=== PATIENT | female | born 1950 | race Caucasian/White ===

== ENCOUNTER 2018-05-01 11:56 | Inpatient (IN) | payer MEDICARE, OTHER, MEDICAID ==
[2018-05-01] MEDS: morphine 10 MG INJ IV (12:15)
[2018-05-01] MEDS: PROPOFOL 200 MG INJ IV (12:56)
[2018-05-01] MEDS: ONDANSETRON 4 MG INJ IV (13:25)
[2018-05-01 13:26] LABS: ADD MAN DIFF? NO
[2018-05-01] MEDS ORDERED: ONDANSETRON 4 MG INJ IV (13:30)
[2018-05-01] MEDS ORDERED: ACETAMINOPHEN 325 MG TAB PO ×2 (13:30→14:00)
[2018-05-01 13:31] LABS: BASOPHILS % 0.5 % (0.0-2.0); EOSINOPHILS % 0.3 % (0.0-7.0); HEMATOCRIT 39.4 % (37.0-47.0); HEMOGLOBIN 13.9 g/dl (12.0-16.0); LYMPHOCYTES # 1.3 10^3/ul (0.8-2.9); LYMPHOCYTES % 21.8 % (15.0-51.0); MEAN CORPUSCULAR HEMOGLOBIN 31.4 pg (29.0-33.0); MEAN CORPUSCULAR HGB CONC 35.3 g/dl (32.0-37.0); MEAN CORPUSCULAR VOLUME 88.9 fl (82.0-101.0); MEAN PLATELET VOLUME 9.4 fl (7.4-10.4); MONOCYTE # 0.6 10^3/ul (0.3-0.9); MONOCYTES % 9.1 % (0.0-11.0); NEUTROPHIL # 4.1 10^3/ul (1.6-7.5); PLATELET COUNT 241 10^3/UL (140-415); RED BLOOD COUNT 4.43 10^6/ul (4.20-5.40); RED CELL DISTRIBUTION WIDTH 12.2 % (11.5-14.5)
[2018-05-01 13:31] LABS: WHITE BLOOD COUNT 6.1 10^3/ul (4.8-10.8)
[2018-05-01 13:50] LABS: ALANINE AMINOTRANSFERASE 62 IU/L (13-69); ALBUMIN 4.3 g/dl (3.3-4.9); ALKALINE PHOSPHATASE 56 IU/L (42-121); ANION GAP 13 (8-16); ASPARTATE AMINO TRANSFERASE 43 IU/L (15-46); BILIRUBIN,INDIRECT 0.2 mg/dl (0-1.1); BILIRUBIN,TOTAL 0.2 mg/dl (0.2-1.3); BLOOD UREA NITROGEN 12 mg/dl (7-20); CALCIUM 8.8 mg/dl (8.4-10.2); CARBON DIOXIDE 25 mmol/L (21-31); CHLORIDE 105 mmol/L (97-110); CREATININE 0.58 mg/dl (0.44-1.00); GLUCOSE 138 mg/dl (70-220); POTASSIUM 3.5 mmol/L (3.5-5.1); SODIUM 139 mmol/L (135-144); TOTAL PROTEIN 7.4 g/dl (6.1-8.1)
[2018-05-01 13:51] LABS: INR 0.92; PARTIAL THROMBOPLASTIN TIME 30.9 Sec (25.0-35.0); PROTIME 12.4 Sec (11.9-14.9)
[2018-05-01] MEDS ORDERED: NACL 0.9% 3 ML SYG IV (14:00)
[2018-05-01] MEDS ORDERED: HYDROCODONE/APAP (5/325) TAB PO ×2 (14:00)
[2018-05-01] MEDS ORDERED: DOCUSATE SODIUM 100 MG CAP PO (14:00)
[2018-05-01] MEDS: KETOROLAC 30 MG INJ IV (14:21)
[2018-05-01 14:27] LABS: HEMOGLOBIN A1C 5.3 % (0-5.9)
[2018-05-01] MEDS: CLINDAMYCIN 900 MG/D5W (PMX) 50 ML IVPB ×3 (14:30→22:22)
[2018-05-01] MEDS: SOD CHLORIDE 0.9% 1,000 ML IV (14:53)
[2018-05-01] MEDS: METOCLOPRAMIDE 10 MG INJ IV ×2 (14:53→20:09)
[2018-05-01] MEDS ORDERED: GLUCAGON 1 MG INJ IM (15:00)
[2018-05-01] MEDS ORDERED: GLUCOSE GEL 15 GRAM TUBE BUCCAL (15:00)
[2018-05-01] MEDS ORDERED: GLUCOSE GEL 15 GRAM TUBE PO ×2 (15:00)
[2018-05-01] MEDS ORDERED: DEXTROSE 50% 50 ML SYRINGE IV ×2 (15:00)
[2018-05-01] MEDS: HYDROmorphONE 0.5 MG/0.5 ML SYG IV (15:20)
[2018-05-01] MEDS: HYDROmorphONE 1 MG/ML SYG IV (16:26)
[2018-05-01] MEDS ORDERED: OXYCODONE/ACETAMINOPHEN (5/325) TAB PO (16:30)
[2018-05-01] MEDS: INSULIN ASPART [NOVOLOG] 3 ML PEN SC ×2 (17:39→21:00)
[2018-05-01] MEDS ORDERED: HYDROmorphONE 0.5 MG/0.5 ML SYG IV (19:00)
[2018-05-01] MEDS: ATORVASTATIN 20 MG TAB PO (20:09)
[2018-05-01] MEDS: OXYCODONE/ACETAMINOPHEN (10/325) TAB PO (20:58)
[2018-05-02] MEDS: KETOROLAC 30 MG INJ IV ×3 (01:00→13:48)
[2018-05-02] MEDS: CLINDAMYCIN 900 MG/D5W (PMX) 50 ML IVPB (05:39)
[2018-05-02 05:59] LABS: ADD MAN DIFF? NO
[2018-05-02] MEDS: PANTOPRAZOLE (EC) 40 MG TAB PO (06:00)
[2018-05-02] MEDS: LEVOTHYROXINE 88 MCG TAB PO ×2 (06:02→10:56)
[2018-05-02 06:03] LABS: WHITE BLOOD COUNT 8.7 10^3/ul (4.8-10.8)
[2018-05-02 06:03] LABS: BASOPHILS % 0.2 % (0.0-2.0); EOSINOPHILS % 0.1 % (0.0-7.0); HEMATOCRIT 35.3 % (37.0-47.0); LYMPHOCYTES # 1.8 10^3/ul (0.8-2.9); LYMPHOCYTES % 20.2 % (15.0-51.0); MEAN CORPUSCULAR HEMOGLOBIN 30.7 pg (29.0-33.0); MEAN CORPUSCULAR VOLUME 90.3 fl (82.0-101.0); MEAN PLATELET VOLUME 10.4 fl (7.4-10.4); MONOCYTE # 0.9 10^3/ul (0.3-0.9); MONOCYTES % 10.9 % (0.0-11.0); NEUTROPHIL # 5.9 10^3/ul (1.6-7.5); NEUTROPHILS % 68.4 % (39.0-77.0); PLATELET COUNT 268 10^3/UL (140-415); RED BLOOD COUNT 3.91 10^6/ul (4.20-5.40); RED CELL DISTRIBUTION WIDTH 12.8 % (11.5-14.5)
[2018-05-02 06:30] LABS: ANION GAP 12 (8-16); BLOOD UREA NITROGEN 15 mg/dl (7-20); CARBON DIOXIDE 26 mmol/L (21-31); CHLORIDE 103 mmol/L (97-110); CREATININE 0.66 mg/dl (0.44-1.00); GLUCOSE 102 mg/dl (70-220); MAGNESIUM 1.7 mg/dl (1.7-2.5); PHOSPHORUS 4.2 mg/dl (2.5-4.9); POTASSIUM 3.8 mmol/L (3.5-5.1); SODIUM 137 mmol/L (135-144)
[2018-05-02] MEDS: INSULIN ASPART [NOVOLOG] 3 ML PEN SC ×4 (07:50→21:00)
[2018-05-02] MEDS: SOD CHLORIDE 0.9% 1,000 ML IV (08:26)
[2018-05-02] MEDS: LOSARTAN 50 MG TAB PO ×2 (09:00→10:56)
[2018-05-02] MEDS: AMLODIPINE 10 MG TAB PO ×2 (09:00→10:56)
[2018-05-02] MEDS: OXYCODONE/ACETAMINOPHEN (10/325) TAB PO ×3 (10:54→22:58)
[2018-05-02] MEDS: SOD CHLORIDE 0.45% 1,000 ML IV (17:18)
[2018-05-02] MEDS: CLINDAMYCIN 300 MG/D5W (PMX) 50 ML IVPB ×2 (17:18→23:22)
[2018-05-02] MEDS: HYDROmorphONE 2 MG TAB PO (21:14)
[2018-05-02] MEDS: ATORVASTATIN 20 MG TAB PO (21:14)
[2018-05-03] MEDS: ACCU-CHEK XX (01:33)
[2018-05-03] MEDS: KETOROLAC 30 MG INJ IV (01:40)
[2018-05-03] MEDS: CLINDAMYCIN 300 MG/D5W (PMX) 50 ML IVPB ×4 (05:14→23:42)
[2018-05-03] MEDS: PANTOPRAZOLE (EC) 40 MG TAB PO (05:16)
[2018-05-03] MEDS: LEVOTHYROXINE 88 MCG TAB PO (05:16)
[2018-05-03 05:39] LABS: ADD MAN DIFF? NO
[2018-05-03 05:45] LABS: BASOPHILS % 0.5 % (0.0-2.0); EOSINOPHILS # 0.1 10^3/ul (0.0-0.5); EOSINOPHILS % 0.8 % (0.0-7.0); HEMATOCRIT 38.1 % (37.0-47.0); HEMOGLOBIN 12.9 g/dl (12.0-16.0); LYMPHOCYTES # 2.2 10^3/ul (0.8-2.9); LYMPHOCYTES % 28.9 % (15.0-51.0); MEAN CORPUSCULAR HEMOGLOBIN 30.9 pg (29.0-33.0); MEAN CORPUSCULAR HGB CONC 33.9 g/dl (32.0-37.0); MEAN CORPUSCULAR VOLUME 91.4 fl (82.0-101.0); MEAN PLATELET VOLUME 10.2 fl (7.4-10.4); MONOCYTE # 0.9 10^3/ul (0.3-0.9); MONOCYTES % 11.3 % (0.0-11.0); NEUTROPHIL # 4.5 10^3/ul (1.6-7.5); NEUTROPHILS % 58.2 % (39.0-77.0); PLATELET COUNT 256 10^3/UL (140-415); RED BLOOD COUNT 4.17 10^6/ul (4.20-5.40); RED CELL DISTRIBUTION WIDTH 12.6 % (11.5-14.5)
[2018-05-03 05:45] LABS: WHITE BLOOD COUNT 7.7 10^3/ul (4.8-10.8)
[2018-05-03 06:24] LABS: ANION GAP 12 (8-16); BLOOD UREA NITROGEN 11 mg/dl (7-20); CALCIUM 8.9 mg/dl (8.4-10.2); CARBON DIOXIDE 29 mmol/L (21-31); CHLORIDE 102 mmol/L (97-110); CREATININE 0.67 mg/dl (0.44-1.00); GLUCOSE 99 mg/dl (70-220); MAGNESIUM 1.6 mg/dl (1.7-2.5); PHOSPHORUS 3.7 mg/dl (2.5-4.9); POTASSIUM 3.8 mmol/L (3.5-5.1); SODIUM 139 mmol/L (135-144)
[2018-05-03] MEDS ORDERED: MIDAZOLAM 1 MG/ML 2 ML INJ IV (06:30)
[2018-05-03] MEDS ORDERED: FENTAnyl 50 MCG/ML VIAL IV ×2 (06:30)
[2018-05-03] MEDS ORDERED: OXYCODONE/ACETAMINOPHEN (5/325) TAB PO ×2 (06:30)
[2018-05-03] MEDS ORDERED: ONDANSETRON 4 MG INJ IV (06:30)
[2018-05-03] MEDS ORDERED: DIPHENHYDRAMINE 50 MG INJ IV (06:30)
[2018-05-03] MEDS ORDERED: ATROPINE 1 MG/10 ML SYRINGE IV (06:30)
[2018-05-03] MEDS ORDERED: morphine (1 MG/ML) 10ML SYRINGE IV ×3 (06:30)
[2018-05-03] MEDS ORDERED: LABETALOL HCL 20MG INJ IV (06:30)
[2018-05-03] MEDS ORDERED: EPHEDrine SULFATE 50 MG/5 ML SYG IV (06:30)
[2018-05-03] MEDS ORDERED: MEPERIDINE 25 MG INJ IV (06:30)
[2018-05-03] MEDS ORDERED: hydrALAzine 20 MG INJ IV (06:30)
[2018-05-03] MEDS ORDERED: HYDROmorphONE 1 MG/5 ML IV SYRINGE IV ×3 (06:30)
[2018-05-03] MEDS ORDERED: FENTAnyl 50 MCG/ML VIAL (06:38)
[2018-05-03] MEDS ORDERED: LIDOCAINE 2% (SDV) 5 ML INJ (06:38)
[2018-05-03] MEDS ORDERED: ROCURONIUM 50 MG INJ (06:38)
[2018-05-03] MEDS ORDERED: MIDAZOLAM 1 MG/ML 2 ML INJ (06:38)
[2018-05-03] MEDS ORDERED: GLYCOPYRROLATE 0.4 MG INJ (06:38)
[2018-05-03] MEDS ORDERED: PROPOFOL 20 ML (06:38)
[2018-05-03] MEDS ORDERED: NEOSTIGMINE 3 MG/3 ML SYRINGE (06:38)
[2018-05-03] MEDS ORDERED: DEXAMETHASONE 4 MG/ML 1 ML INJ (06:39)
[2018-05-03] MEDS ORDERED: ONDANSETRON 4 MG INJ (06:39)
[2018-05-03] MEDS ORDERED: ROPIVACAINE 0.5 % 30 ML VIAL (06:52)
[2018-05-03] MEDS ORDERED: FLUMAZENIL 0.5 MG INJ (07:00)
[2018-05-03] MEDS ORDERED: SUGAMMADEX SODIUM 200 MG/2 ML VIAL IV (07:00)
[2018-05-03] MEDS: SOD CHLORIDE 0.9% 1,000 ML IV (07:11)
[2018-05-03] MEDS: VANCOMYCIN 1 GM (PMX) 250 ML IVPB (07:23)
[2018-05-03] MEDS: INSULIN ASPART [NOVOLOG] 3 ML PEN SC ×4 (07:50→20:26)
[2018-05-03] MEDS: POLYMYXIN/BACITRACIN 1L IRRIG IRR (08:44)
[2018-05-03] MEDS: AMLODIPINE 10 MG TAB PO (09:00)
[2018-05-03] MEDS: LOSARTAN 50 MG TAB PO (09:00)
[2018-05-03] MEDS ORDERED: morphine 4 MG/ML VIAL IV (12:00)
[2018-05-03] MEDS ORDERED: NACL 0.9% 3 ML SYG IV (12:00)
[2018-05-03] MEDS ORDERED: CEFAZOLIN 1 GM/50 ML (PMX) 50 ML IVPB (12:00)
[2018-05-03] MEDS ORDERED: HYDROmorphONE 0.5 MG/0.5 ML SYG IV (13:00)
[2018-05-03] MEDS: D5W-0.45 NACL + KCL 20 MEQ 1,000 ML IV ×2 (13:05→21:45)
[2018-05-03] MEDS: MAGNESIUM SULFATE 2 GM/50 ML 50 ML IVPB (14:09)
[2018-05-03] MEDS: OXYCODONE/ACETAMINOPHEN (5/325) TAB PO (16:09)
[2018-05-03] MEDS: ATORVASTATIN 20 MG TAB PO (20:28)
[2018-05-04] MEDS: OXYCODONE/ACETAMINOPHEN (5/325) TAB PO ×3 (00:45→06:18)
[2018-05-04] MEDS: ACCU-CHEK XX (01:30)
[2018-05-04] MEDS: D5W-0.45 NACL + KCL 20 MEQ 1,000 ML IV (02:22)
[2018-05-04] MEDS: OXYCODONE/ACETAMINOPHEN (10/325) TAB PO ×4 (03:36→20:44)
[2018-05-04] MEDS: CLINDAMYCIN 300 MG/D5W (PMX) 50 ML IVPB (05:19)
[2018-05-04] MEDS: PANTOPRAZOLE (EC) 40 MG TAB PO (05:19)
[2018-05-04] MEDS: LEVOTHYROXINE 88 MCG TAB PO (05:19)
[2018-05-04 06:18] LABS: ADD MAN DIFF? NO
[2018-05-04 06:45] LABS: BASOPHILS % 0.1 % (0.0-2.0); HEMATOCRIT 31.9 % (37.0-47.0); HEMOGLOBIN 10.8 g/dl (12.0-16.0); LYMPHOCYTES # 1.6 10^3/ul (0.8-2.9); LYMPHOCYTES % 14.4 % (15.0-51.0); MEAN CORPUSCULAR HEMOGLOBIN 30.8 pg (29.0-33.0); MEAN CORPUSCULAR HGB CONC 33.9 g/dl (32.0-37.0); MEAN CORPUSCULAR VOLUME 90.9 fl (82.0-101.0); MEAN PLATELET VOLUME 10.6 fl (7.4-10.4); MONOCYTE # 1.4 10^3/ul (0.3-0.9); MONOCYTES % 12.8 % (0.0-11.0); NEUTROPHIL # 7.9 10^3/ul (1.6-7.5); NEUTROPHILS % 72.4 % (39.0-77.0); PLATELET COUNT 228 10^3/UL (140-415); RED BLOOD COUNT 3.51 10^6/ul (4.20-5.40); RED CELL DISTRIBUTION WIDTH 12.6 % (11.5-14.5)
[2018-05-04 07:20] LABS: ANION GAP 14 (8-16); BLOOD UREA NITROGEN 13 mg/dl (7-20); CALCIUM 9.1 mg/dl (8.4-10.2); CARBON DIOXIDE 26 mmol/L (21-31); CHLORIDE 105 mmol/L (97-110); CREATININE 0.91 mg/dl (0.44-1.00); GLUCOSE 112 mg/dl (70-220); MAGNESIUM 1.9 mg/dl (1.7-2.5); PHOSPHORUS 3.6 mg/dl (2.5-4.9); POTASSIUM 3.7 mmol/L (3.5-5.1); SODIUM 141 mmol/L (135-144)
[2018-05-04] MEDS: INSULIN ASPART [NOVOLOG] 3 ML PEN SC ×4 (07:50→20:46)
[2018-05-04] MEDS: AMLODIPINE 10 MG TAB PO (08:53)
[2018-05-04] MEDS: LOSARTAN 50 MG TAB PO (08:53)
[2018-05-04] MEDS: KETOROLAC 30 MG INJ IV (08:54)
[2018-05-04] MEDS: ENOXAPARIN 40 MG/0.4 ML SYG SC (08:55)
[2018-05-04] MEDS ORDERED: morphine 4 MG/ML VIAL IV (11:00)
[2018-05-04] MEDS ORDERED: HYDROmorphONE 0.5 MG/0.5 ML SYG IV (12:00)
[2018-05-04] MEDS: ATORVASTATIN 20 MG TAB PO (20:44)
[2018-05-05] MEDS: OXYCODONE/ACETAMINOPHEN (10/325) TAB PO ×6 (00:35→23:26)
[2018-05-05] MEDS: ACCU-CHEK XX ×2 (01:06→21:57)
[2018-05-05] MEDS: PANTOPRAZOLE (EC) 40 MG TAB PO (05:33)
[2018-05-05 05:34] LABS: ADD MAN DIFF? NO
[2018-05-05 05:40] LABS: BASOPHILS % 0.4 % (0.0-2.0); EOSINOPHILS % 0.5 % (0.0-7.0); HEMATOCRIT 31.7 % (37.0-47.0); HEMOGLOBIN 10.6 g/dl (12.0-16.0); LYMPHOCYTES % 25.9 % (15.0-51.0); MEAN CORPUSCULAR HEMOGLOBIN 30.1 pg (29.0-33.0); MEAN CORPUSCULAR HGB CONC 33.4 g/dl (32.0-37.0); MEAN CORPUSCULAR VOLUME 90.1 fl (82.0-101.0); MEAN PLATELET VOLUME 10.5 fl (7.4-10.4); MONOCYTES % 12.1 % (0.0-11.0); NEUTROPHIL # 4.8 10^3/ul (1.6-7.5); NEUTROPHILS % 60.6 % (39.0-77.0); PLATELET COUNT 223 10^3/UL (140-415); RED BLOOD COUNT 3.52 10^6/ul (4.20-5.40); RED CELL DISTRIBUTION WIDTH 12.5 % (11.5-14.5)
[2018-05-05 05:40] LABS: WHITE BLOOD COUNT 7.9 10^3/ul (4.8-10.8)
[2018-05-05 06:04] LABS: ANION GAP 11 (8-16); BLOOD UREA NITROGEN 15 mg/dl (7-20); CALCIUM 9.2 mg/dl (8.4-10.2); CARBON DIOXIDE 29 mmol/L (21-31); CHLORIDE 102 mmol/L (97-110); CREATININE 0.92 mg/dl (0.44-1.00); GLUCOSE 97 mg/dl (70-220); MAGNESIUM 1.4 mg/dl (1.7-2.5); PHOSPHORUS 4.8 mg/dl (2.5-4.9); POTASSIUM 3.9 mmol/L (3.5-5.1); SODIUM 138 mmol/L (135-144)
[2018-05-05] MEDS: LEVOTHYROXINE 88 MCG TAB PO (06:47)
[2018-05-05] MEDS: MAGNESIUM HYDROXIDE 30ML CUP PO (06:48)
[2018-05-05] MEDS: INSULIN ASPART [NOVOLOG] 3 ML PEN SC ×4 (07:50→21:00)
[2018-05-05] MEDS: AMLODIPINE 10 MG TAB PO (08:31)
[2018-05-05] MEDS: LOSARTAN 50 MG TAB PO (08:32)
[2018-05-05] MEDS: ENOXAPARIN 40 MG/0.4 ML SYG SC (08:42)
[2018-05-05] MEDS: MAGNESIUM SULFATE 4 GM/100 ML 100 ML IVPB (10:18)
[2018-05-05] MEDS: HYDROmorphONE 2 MG TAB PO (21:02)
[2018-05-05] MEDS: ATORVASTATIN 20 MG TAB PO (21:02)
[2018-05-06] MEDS: OXYCODONE/ACETAMINOPHEN (10/325) TAB PO ×2 (03:12→06:58)
[2018-05-06] MEDS: PANTOPRAZOLE (EC) 40 MG TAB PO (05:37)
[2018-05-06] MEDS: HYDROmorphONE 2 MG TAB PO (05:38)
[2018-05-06 05:52] LABS: ALANINE AMINOTRANSFERASE 44 IU/L (13-69); ALBUMIN 3.6 g/dl (3.3-4.9); ALBUMIN/GLOBULIN RATIO 1.28; ALKALINE PHOSPHATASE 44 IU/L (42-121); ANION GAP 13 (8-16); ASPARTATE AMINO TRANSFERASE 55 IU/L (15-46); BILIRUBIN,INDIRECT 0.4 mg/dl (0-1.1); BILIRUBIN,TOTAL 0.4 mg/dl (0.2-1.3); BLOOD UREA NITROGEN 21 mg/dl (7-20); CALCIUM 9.3 mg/dl (8.4-10.2); CARBON DIOXIDE 32 mmol/L (21-31); CHLORIDE 100 mmol/L (97-110); CREATININE 0.94 mg/dl (0.44-1.00); GLUCOSE 102 mg/dl (70-220); MAGNESIUM 1.6 mg/dl (1.7-2.5); POTASSIUM 3.9 mmol/L (3.5-5.1); SODIUM 141 mmol/L (135-144); TOTAL PROTEIN 6.4 g/dl (6.1-8.1)
[2018-05-06] MEDS: LEVOTHYROXINE 88 MCG TAB PO (06:29)
[2018-05-06] MEDS: INSULIN ASPART [NOVOLOG] 3 ML PEN SC ×2 (07:50→11:40)
[2018-05-06] MEDS: AMLODIPINE 10 MG TAB PO (08:40)
[2018-05-06] MEDS: LOSARTAN 50 MG TAB PO (08:40)
[2018-05-06] MEDS: ENOXAPARIN 40 MG/0.4 ML SYG SC (08:41)
[2018-05-06] MEDS ORDERED: ALBUTEROL/IPRATROPIUM (NEB) 3 ML AMP HHN (11:00)
[2018-05-06] MEDS: METOPROLOL 25 MG TAB PO (11:06)
[2018-05-06] MEDS: ALBUTEROL/IPRATROPIUM (NEB) 3 ML AMP HHN (14:59)
== END 2018-05-06 15:30 | DRG 494 ==
LOC: E/R 11:56 → MS1 17:37
PROC: 0QSK04Z Reposition Left Fibula with Internal Fixation Device, Open Approach (ICD-10-PCS; principal; 2018-05-03 07:30)
PROC: 0QSH04Z Reposition Left Tibia with Internal Fixation Device, Open Approach (ICD-10-PCS; 2018-05-03 07:30)
DX: S82.852A Displaced trimalleolar fracture of left lower leg, initial encounter for closed fracture (principal); I10 Essential (primary) hypertension; E11.9 Type 2 diabetes mellitus without complications; E03.9 Hypothyroidism, unspecified; F17.210 Nicotine dependence, cigarettes, uncomplicated; G47.33 Obstructive sleep apnea (adult) (pediatric); S80.822A Blister (nonthermal), left lower leg, initial encounter; E78.5 Hyperlipidemia, unspecified; F39 Unspecified mood [affective] disorder; I25.10 Atherosclerotic heart disease of native coronary artery without angina pectoris; W18.40XA Slipping, tripping and stumbling without falling, unspecified, initial encounter; Y93.9 Activity, unspecified; Y92.019 Unspecified place in single-family (private) house as the place of occurrence of the external cause; Y99.8 Other external cause status; Z79.02 Long term (current) use of antithrombotics/antiplatelets; Z79.4 Long term (current) use of insulin
CPT/HCPCS: 71045; 73610; 73700; 80048; 80053; 80076; 82962; 83036; 83735; 84100; 84443; 85025; 85610; 85730; 86850; 86900; 86901; 93005; 93306; 94664; 96374; 97110; 97116; 97161; 97530; 99285-25

== ENCOUNTER 2018-05-06 15:24 | Inpatient (IN) | payer MEDICARE, OTHER ==
[2018-05-06] MEDS ORDERED: ACETAMINOPHEN 325 MG TAB PO (16:00)
[2018-05-06] MEDS ORDERED: BISACODYL (EC) 5 MG TAB PO (16:00)
[2018-05-06] MEDS ORDERED: NACL 0.9% 3 ML SYG IV (16:00)
[2018-05-06] MEDS ORDERED: DOCUSATE SODIUM 100 MG CAP PO (16:00)
[2018-05-06] MEDS ORDERED: MAGNESIUM HYDROXIDE 30ML CUP PO (16:00)
[2018-05-06] MEDS: OXYCODONE/ACETAMINOPHEN (10/325) TAB PO ×2 (17:19→20:56)
[2018-05-06] MEDS: MAGNESIUM OXIDE 400 MG TAB PO (17:20)
[2018-05-06 18:44] LABS: ADD UMIC YES; UR ASCORBIC ACID NEGATIVE (NEGATIVE); UR BILIRUBIN (Dip) NEGATIVE (NEGATIVE); UR BLOOD (Dip) 2+ mg/dL (NEGATIVE); UR CLARITY CLEAR (CLEAR); UR COLOR YELLOW (YELLOW); UR GLUCOSE (Dip) NEGATIVE (NEGATIVE); UR KETONES (Dip) NEGATIVE (NEGATIVE); UR LEUKOCYTE ESTERASE (Dip) NEGATIVE Leu/ul (NEGATIVE); UR NITRITE (Dip) NEGATIVE (NEGATIVE); UR RBC 2 /HPF (0-5); UR TOTAL PROTEIN (Dip) NEGATIVE (NEGATIVE); UR UROBILINOGEN (Dip) NEGATIVE (NEGATIVE); UR WBC 4 /HPF (0-5)
[2018-05-06] MEDS ORDERED: LACTULOSE 30ML CUP PO (19:00)
[2018-05-06] MEDS: ALBUTEROL/IPRATROPIUM (NEB) 3 ML AMP HHN (20:26)
[2018-05-06] MEDS: DOCUSATE SODIUM 100 MG CAP PO (20:55)
[2018-05-06] MEDS: TIOTROPIUM 18 MCG CAPSULE INHA DEV INH ×2 (20:55→21:00)
[2018-05-06] MEDS: FISH OIL 1,000 MG CAP PO (20:56)
[2018-05-06] MEDS: ATORVASTATIN 20 MG TAB PO (20:56)
[2018-05-06] MEDS: SENNA TAB PO (20:56)
[2018-05-06] MEDS: METOPROLOL 25 MG TAB PO (20:57)
[2018-05-07] MEDS: OXYCODONE/ACETAMINOPHEN (10/325) TAB PO ×5 (01:03→19:57)
[2018-05-07] MEDS: LEVOTHYROXINE 88 MCG TAB PO (06:36)
[2018-05-07 07:33] LABS: ADD MAN DIFF? NO
[2018-05-07 07:42] LABS: WHITE BLOOD COUNT 7.6 10^3/ul (4.8-10.8)
[2018-05-07 07:42] LABS: BASOPHILS % 0.4 % (0.0-2.0); EOSINOPHILS # 0.1 10^3/ul (0.0-0.5); EOSINOPHILS % 1.3 % (0.0-7.0); HEMATOCRIT 33.9 % (37.0-47.0); HEMOGLOBIN 11.4 g/dl (12.0-16.0); LYMPHOCYTES # 2.1 10^3/ul (0.8-2.9); LYMPHOCYTES % 28.1 % (15.0-51.0); MEAN CORPUSCULAR HEMOGLOBIN 30.4 pg (29.0-33.0); MEAN CORPUSCULAR HGB CONC 33.6 g/dl (32.0-37.0); MEAN CORPUSCULAR VOLUME 90.4 fl (82.0-101.0); MEAN PLATELET VOLUME 9.9 fl (7.4-10.4); MONOCYTE # 0.9 10^3/ul (0.3-0.9); MONOCYTES % 11.3 % (0.0-11.0); NEUTROPHIL # 4.4 10^3/ul (1.6-7.5); NEUTROPHILS % 58.4 % (39.0-77.0); PLATELET COUNT 290 10^3/UL (140-415); RED BLOOD COUNT 3.75 10^6/ul (4.20-5.40); RED CELL DISTRIBUTION WIDTH 12.1 % (11.5-14.5)
[2018-05-07 08:06] LABS: ALANINE AMINOTRANSFERASE 39 IU/L (13-69); ALBUMIN 3.9 g/dl (3.3-4.9); ALBUMIN/GLOBULIN RATIO 1.21; ALKALINE PHOSPHATASE 46 IU/L (42-121); ANION GAP 14 (8-16); ASPARTATE AMINO TRANSFERASE 49 IU/L (15-46); BILIRUBIN,INDIRECT 0.5 mg/dl (0-1.1); BILIRUBIN,TOTAL 0.5 mg/dl (0.2-1.3); BLOOD UREA NITROGEN 19 mg/dl (7-20); CALCIUM 9.8 mg/dl (8.4-10.2); CARBON DIOXIDE 35 mmol/L (21-31); CHLORIDE 99 mmol/L (97-110); CREATININE 0.87 mg/dl (0.44-1.00); GLUCOSE 115 mg/dl (70-220); MAGNESIUM 1.6 mg/dl (1.7-2.5); POTASSIUM 4.3 mmol/L (3.5-5.1); SODIUM 144 mmol/L (135-144); TOTAL PROTEIN 7.1 g/dl (6.1-8.1)
[2018-05-07] MEDS: ALBUTEROL/IPRATROPIUM (NEB) 3 ML AMP HHN ×3 (09:00→19:27)
[2018-05-07] MEDS: MEMANTINE 5 MG TAB PO ×2 (09:00→20:55)
[2018-05-07] MEDS: DOCUSATE SODIUM 100 MG CAP PO ×2 (09:00→20:55)
[2018-05-07] MEDS: ARIPIPRAZOLE 5 MG TAB PO (09:00)
[2018-05-07] MEDS: LOSARTAN 50 MG TAB PO ×2 (09:00→16:40)
[2018-05-07] MEDS: ESCITALOPRAM 10 MG TAB PO (09:00)
[2018-05-07] MEDS: FISH OIL 1,000 MG CAP PO ×2 (09:40→20:50)
[2018-05-07] MEDS: METOPROLOL 25 MG TAB PO ×2 (09:42→20:50)
[2018-05-07] MEDS: FENOFIBRATE 145 MG TAB PO (09:44)
[2018-05-07] MEDS: AMLODIPINE 10 MG TAB PO (09:45)
[2018-05-07] MEDS: CLOPIDOGREL 75 MG TAB PO (09:46)
[2018-05-07] MEDS: MAGNESIUM OXIDE 400 MG TAB PO (09:50)
[2018-05-07] MEDS ORDERED: ONDANSETRON (ODT) 4 MG TAB ODT (17:00)
[2018-05-07] MEDS: ATORVASTATIN 20 MG TAB PO (20:50)
[2018-05-07] MEDS: SENNA TAB PO (20:55)
[2018-05-08] MEDS: OXYCODONE/ACETAMINOPHEN (10/325) TAB PO ×6 (00:11→21:31)
[2018-05-08] MEDS: LEVOTHYROXINE 88 MCG TAB PO (06:29)
[2018-05-08 07:16] LABS: ANION GAP 14 (8-16); BLOOD UREA NITROGEN 20 mg/dl (7-20); CALCIUM 9.3 mg/dl (8.4-10.2); CARBON DIOXIDE 31 mmol/L (21-31); CHLORIDE 101 mmol/L (97-110); CREATININE 0.74 mg/dl (0.44-1.00); GLUCOSE 102 mg/dl (70-220); MAGNESIUM 1.6 mg/dl (1.7-2.5); PHOSPHORUS 5.2 mg/dl (2.5-4.9); POTASSIUM 3.7 mmol/L (3.5-5.1); SODIUM 142 mmol/L (135-144)
[2018-05-08] MEDS: ALBUTEROL/IPRATROPIUM (NEB) 3 ML AMP HHN ×3 (09:00→20:00)
[2018-05-08] MEDS: FENOFIBRATE 145 MG TAB PO (09:28)
[2018-05-08] MEDS: MEMANTINE 5 MG TAB PO ×2 (09:28→20:40)
[2018-05-08] MEDS: ARIPIPRAZOLE 5 MG TAB PO (09:28)
[2018-05-08] MEDS: METOPROLOL 25 MG TAB PO ×2 (09:28→20:40)
[2018-05-08] MEDS: AMLODIPINE 10 MG TAB PO (09:29)
[2018-05-08] MEDS: DOCUSATE SODIUM 100 MG CAP PO ×2 (09:29→20:40)
[2018-05-08] MEDS: FISH OIL 1,000 MG CAP PO ×2 (09:29→20:39)
[2018-05-08] MEDS: LOSARTAN 50 MG TAB PO (09:29)
[2018-05-08] MEDS: ESCITALOPRAM 10 MG TAB PO (09:29)
[2018-05-08] MEDS: CLOPIDOGREL 75 MG TAB PO (09:29)
[2018-05-08] MEDS: MAGNESIUM CHLORIDE (SR) 64 MG TAB PO (10:54)
[2018-05-08] MEDS: CIPROFLOXACIN 500 MG TAB PO ×2 (10:54→17:27)
[2018-05-08] MEDS: ASPIRIN 81 MG TAB PO (10:54)
[2018-05-08] MEDS: ATORVASTATIN 20 MG TAB PO (20:39)
[2018-05-08] MEDS: SENNA TAB PO (20:40)
[2018-05-09] MEDS: OXYCODONE/ACETAMINOPHEN (10/325) TAB PO ×6 (01:30→22:36)
[2018-05-09] MEDS: LEVOTHYROXINE 88 MCG TAB PO (05:31)
[2018-05-09] MEDS: CIPROFLOXACIN 500 MG TAB PO ×2 (05:31→18:32)
[2018-05-09] MEDS: ALBUTEROL/IPRATROPIUM (NEB) 3 ML AMP HHN ×3 (07:55→20:41)
[2018-05-09] MEDS: FENOFIBRATE 145 MG TAB PO (08:31)
[2018-05-09] MEDS: METOPROLOL 25 MG TAB PO ×2 (08:31→20:33)
[2018-05-09] MEDS: FISH OIL 1,000 MG CAP PO ×2 (08:32→20:28)
[2018-05-09] MEDS: ASPIRIN 81 MG TAB PO (08:34)
[2018-05-09] MEDS: LOSARTAN 50 MG TAB PO ×2 (08:34→14:00)
[2018-05-09] MEDS: ARIPIPRAZOLE 5 MG TAB PO ×2 (08:34→21:00)
[2018-05-09] MEDS: DOCUSATE SODIUM 100 MG CAP PO (08:34)
[2018-05-09] MEDS: MEMANTINE 5 MG TAB PO ×2 (08:35→21:00)
[2018-05-09] MEDS: AMLODIPINE 10 MG TAB PO ×2 (08:35→14:00)
[2018-05-09] MEDS: ESCITALOPRAM 10 MG TAB PO ×2 (08:35→21:00)
[2018-05-09] MEDS: CLOPIDOGREL 75 MG TAB PO (08:36)
[2018-05-09] MEDS ORDERED: OXYCODONE/ACETAMINOPHEN (10/325) TAB PO (10:00)
[2018-05-09] MEDS: ATORVASTATIN 20 MG TAB PO (20:28)
[2018-05-09] MEDS: SENNA TAB PO (21:00)
[2018-05-10] MEDS: OXYCODONE/ACETAMINOPHEN (10/325) TAB PO ×4 (02:38→14:52)
[2018-05-10] MEDS: LEVOTHYROXINE 88 MCG TAB PO (06:39)
[2018-05-10] MEDS: CIPROFLOXACIN 500 MG TAB PO ×2 (06:39→17:50)
[2018-05-10] MEDS: ALBUTEROL/IPRATROPIUM (NEB) 3 ML AMP HHN ×4 (07:36→20:15)
[2018-05-10] MEDS: METOPROLOL 25 MG TAB PO ×2 (08:35→20:20)
[2018-05-10] MEDS: CLOPIDOGREL 75 MG TAB PO (08:36)
[2018-05-10] MEDS: FISH OIL 1,000 MG CAP PO ×2 (08:37→20:19)
[2018-05-10] MEDS: AMLODIPINE 10 MG TAB PO (08:37)
[2018-05-10] MEDS: FENOFIBRATE 145 MG TAB PO (08:37)
[2018-05-10] MEDS: MEMANTINE 5 MG TAB PO ×2 (08:39→21:00)
[2018-05-10] MEDS: ASPIRIN 81 MG TAB PO (08:39)
[2018-05-10] MEDS: LOSARTAN 50 MG TAB PO ×2 (08:39→17:54)
[2018-05-10] MEDS: OXYCODONE/ACETAMINOPHEN (5/325) TAB PO ×2 (19:28→22:52)
[2018-05-10] MEDS: SENNA TAB PO (20:19)
[2018-05-10] MEDS: ATORVASTATIN 20 MG TAB PO (20:19)
[2018-05-10] MEDS: ESCITALOPRAM 10 MG TAB PO (21:00)
[2018-05-10] MEDS: ARIPIPRAZOLE 5 MG TAB PO (21:00)
[2018-05-11] MEDS: OXYCODONE/ACETAMINOPHEN (10/325) TAB PO (04:27)
[2018-05-11] MEDS: OXYCODONE/ACETAMINOPHEN (5/325) TAB PO ×5 (04:29→20:57)
[2018-05-11] MEDS: CIPROFLOXACIN 500 MG TAB PO ×2 (07:00→17:15)
[2018-05-11] MEDS: LEVOTHYROXINE 88 MCG TAB PO (07:00)
[2018-05-11] MEDS: MEMANTINE 5 MG TAB PO ×2 (09:00→21:00)
[2018-05-11] MEDS: ALBUTEROL/IPRATROPIUM (NEB) 3 ML AMP HHN ×3 (09:00→20:00)
[2018-05-11] MEDS: FENOFIBRATE 145 MG TAB PO (09:00)
[2018-05-11] MEDS: LOSARTAN 50 MG TAB PO (09:00)
[2018-05-11] MEDS: AMLODIPINE 10 MG TAB PO (09:00)
[2018-05-11] MEDS: METOPROLOL 25 MG TAB PO ×2 (09:00→21:00)
[2018-05-11] MEDS: ASPIRIN 81 MG TAB PO (09:00)
[2018-05-11] MEDS: FISH OIL 1,000 MG CAP PO ×2 (09:18→20:59)
[2018-05-11] MEDS: CLOPIDOGREL 75 MG TAB PO (09:23)
[2018-05-11 14:44] LABS: ADD MAN DIFF? NO
[2018-05-11 14:45] LABS: WHITE BLOOD COUNT 8.5 10^3/ul (4.8-10.8)
[2018-05-11 14:45] LABS: BASOPHILS % 0.4 % (0.0-2.0); EOSINOPHILS # 0.1 10^3/ul (0.0-0.5); EOSINOPHILS % 0.8 % (0.0-7.0); HEMATOCRIT 30.7 % (37.0-47.0); HEMOGLOBIN 10.5 g/dl (12.0-16.0); LYMPHOCYTES # 1.9 10^3/ul (0.8-2.9); MEAN CORPUSCULAR HEMOGLOBIN 30.8 pg (29.0-33.0); MEAN CORPUSCULAR HGB CONC 34.2 g/dl (32.0-37.0); MEAN PLATELET VOLUME 10.2 fl (7.4-10.4); MONOCYTE # 0.8 10^3/ul (0.3-0.9); MONOCYTES % 9.6 % (0.0-11.0); NEUTROPHIL # 5.7 10^3/ul (1.6-7.5); NEUTROPHILS % 66.6 % (39.0-77.0); PLATELET COUNT 341 10^3/UL (140-415); RED BLOOD COUNT 3.41 10^6/ul (4.20-5.40); RED CELL DISTRIBUTION WIDTH 12.3 % (11.5-14.5)
[2018-05-11] MEDS: ATORVASTATIN 20 MG TAB PO (20:59)
[2018-05-11] MEDS: ESCITALOPRAM 10 MG TAB PO (21:00)
[2018-05-11] MEDS: SENNA TAB PO (21:00)
[2018-05-11] MEDS: ARIPIPRAZOLE 5 MG TAB PO (21:00)
[2018-05-12] MEDS: OXYCODONE/ACETAMINOPHEN (5/325) TAB PO ×6 (00:50→20:57)
[2018-05-12] MEDS: CIPROFLOXACIN 500 MG TAB PO ×2 (06:43→17:29)
[2018-05-12] MEDS: LEVOTHYROXINE 88 MCG TAB PO (06:46)
[2018-05-12] MEDS: LOSARTAN 50 MG TAB PO (08:40)
[2018-05-12] MEDS: AMLODIPINE 10 MG TAB PO (08:40)
[2018-05-12] MEDS: CLOPIDOGREL 75 MG TAB PO (08:40)
[2018-05-12] MEDS: METOPROLOL 25 MG TAB PO ×2 (08:41→21:04)
[2018-05-12] MEDS: FISH OIL 1,000 MG CAP PO ×2 (08:41→20:59)
[2018-05-12] MEDS: ALBUTEROL/IPRATROPIUM (NEB) 3 ML AMP HHN ×4 (09:00→21:01)
[2018-05-12] MEDS: FENOFIBRATE 145 MG TAB PO (09:00)
[2018-05-12] MEDS: ASPIRIN 81 MG TAB PO (09:00)
[2018-05-12] MEDS: MEMANTINE 5 MG TAB PO ×2 (09:00→21:00)
[2018-05-12] MEDS: MULTIVITAMINS THERAPEUTIC TAB PO (20:59)
[2018-05-12] MEDS: ATORVASTATIN 20 MG TAB PO (20:59)
[2018-05-12] MEDS: ESCITALOPRAM 10 MG TAB PO (21:00)
[2018-05-12] MEDS: ARIPIPRAZOLE 5 MG TAB PO (21:00)
[2018-05-12] MEDS: SENNA TAB PO (21:00)
[2018-05-13] MEDS: OXYCODONE/ACETAMINOPHEN (5/325) TAB PO ×2 (00:56→05:37)
[2018-05-13] MEDS: CIPROFLOXACIN 500 MG TAB PO (05:39)
[2018-05-13] MEDS: LEVOTHYROXINE 88 MCG TAB PO (05:39)
[2018-05-13] MEDS: ALBUTEROL/IPRATROPIUM (NEB) 3 ML AMP HHN ×2 (07:52→20:57)
[2018-05-13] MEDS: LOSARTAN 50 MG TAB PO (09:00)
[2018-05-13] MEDS: MEMANTINE 5 MG TAB PO ×2 (09:00→21:00)
[2018-05-13] MEDS: AMLODIPINE 10 MG TAB PO (09:00)
[2018-05-13] MEDS: CLOPIDOGREL 75 MG TAB PO (09:00)
[2018-05-13] MEDS: ASPIRIN 81 MG TAB PO (09:00)
[2018-05-13] MEDS: FENOFIBRATE 145 MG TAB PO (09:00)
[2018-05-13] MEDS: FOLIC ACID 1 MG TAB PO (09:08)
[2018-05-13] MEDS: COLLAGENASE 5 GM (UD JAR) TOP (09:08)
[2018-05-13] MEDS: FISH OIL 1,000 MG CAP PO ×2 (09:08→21:14)
[2018-05-13] MEDS: METOPROLOL 25 MG TAB PO ×2 (09:08→21:17)
[2018-05-13] MEDS: OXYCODONE/ACETAMINOPHEN (10/325) TAB PO ×3 (09:08→21:18)
[2018-05-13] MEDS: ASCORBIC ACID 500 MG TAB PO (09:16)
[2018-05-13] MEDS: ESCITALOPRAM 10 MG TAB PO (21:00)
[2018-05-13] MEDS: SENNA TAB PO (21:00)
[2018-05-13] MEDS: ARIPIPRAZOLE 5 MG TAB PO (21:00)
[2018-05-13] MEDS: MULTIVITAMINS THERAPEUTIC TAB PO (21:14)
[2018-05-13] MEDS: ATORVASTATIN 20 MG TAB PO (21:14)
[2018-05-13] MEDS: DICLOFENAC SODIUM 1% GEL 100 GM TUBE TP (23:35)
[2018-05-14] MEDS: OXYCODONE/ACETAMINOPHEN (10/325) TAB PO (05:00)
[2018-05-14] MEDS: LEVOTHYROXINE 88 MCG TAB PO (06:18)
[2018-05-14] MEDS: ALBUTEROL/IPRATROPIUM (NEB) 3 ML AMP HHN (08:00)
[2018-05-14] MEDS: ASCORBIC ACID 500 MG TAB PO (08:49)
[2018-05-14] MEDS: ASPIRIN 81 MG TAB PO (08:50)
[2018-05-14] MEDS: COLLAGENASE 5 GM (UD JAR) TOP (08:52)
[2018-05-14] MEDS: DICLOFENAC SODIUM 1% GEL 100 GM TUBE TP (08:52)
[2018-05-14] MEDS: FISH OIL 1,000 MG CAP PO (08:53)
[2018-05-14] MEDS: LOSARTAN 50 MG TAB PO (08:53)
[2018-05-14] MEDS: FOLIC ACID 1 MG TAB PO (08:53)
[2018-05-14] MEDS: METOPROLOL 25 MG TAB PO (08:54)
[2018-05-14] MEDS: MEMANTINE 5 MG TAB PO (08:54)
[2018-05-14] MEDS: AMLODIPINE 10 MG TAB PO (08:54)
[2018-05-14] MEDS: FENOFIBRATE 145 MG TAB PO (08:55)
[2018-05-14] MEDS: CLOPIDOGREL 75 MG TAB PO (08:55)
[2018-05-14] MEDS ORDERED: DICLOFENAC SODIUM 1% GEL 100 GM TUBE TP (09:00)
[2018-05-14] MEDS: OXYCODONE/ACETAMINOPHEN (5/325) TAB PO (09:57)
== END 2018-05-14 10:46 | disposition home health service (06) | DRG 560 ==
LOC: VRC 15:24
PROC: F07Z8ZZ Transfer Training Treatment (ICD-10-PCS; principal; 2018-05-07)
PROC: F07Z9ZZ Gait Training/Functional Ambulation Treatment (ICD-10-PCS; 2018-05-07)
PROC: F08Z2ZZ Grooming/Personal Hygiene Treatment (ICD-10-PCS; 2018-05-07)
PROC: F08Z0ZZ Bathing/Showering Techniques Treatment (ICD-10-PCS; 2018-05-07)
DX: S82.852D Displaced trimalleolar fracture of left lower leg, subsequent encounter for closed fracture with routine healing (principal); N39.0 Urinary tract infection, site not specified; F33.1 Major depressive disorder, recurrent, moderate; W19.XXXD Unspecified fall, subsequent encounter; I10 Essential (primary) hypertension; I25.10 Atherosclerotic heart disease of native coronary artery without angina pectoris; E78.5 Hyperlipidemia, unspecified; E03.9 Hypothyroidism, unspecified; F39 Unspecified mood [affective] disorder; B96.20 Unspecified Escherichia coli [E. coli] as the cause of diseases classified elsewhere; F09 Unspecified mental disorder due to known physiological condition
CPT/HCPCS: 73610; 80048; 80053; 81001; 83735; 84100; 85025; 87081; 87086; 94640; 94664; 97110; 97116; 97163; 97167; 97530; 97535; 97542